=== PATIENT | female | born 1950 | race Caucasian/White ===

== ENCOUNTER 2018-12-10 11:11 | Emergency (ER) | payer MEDICARE, OTHER ==
--- NOTE | 2018-12-10 11:19 | ER Report ---
History and Physical Time Seen By MD: 11:16 Hx. of Stated Complaint: patient fell in the parking lot of the [facility]. substantial hematoma above the right eye. No LOC No C-spine tenderness. Abrasions to the left knee HPI/ROS CHIEF COMPLAINT: Fall with swelling above right eye, lip laceration HISTORY OF PRESENT ILLNESS: 68-year-old female patient presents to emergency room with complaint of a fall. Patient states she was loading up car at the [facility]. She had asked her daughter take the lawn chairs out of the back circular. She states she was not paying attention tripped over the long tears. She states she fell down and hit her head very hard. She denies any loss of consciousness. She denies having any neck pain. Patient states she's had no nausea, vomiting. Patient has not taken any medication for this. She did have significant amounts of swelling to the forehead as well as a cut to her lip. REVIEW OF SYSTEMS: Respiratory: No cough, no dyspnea. Cardiovascular: No chest pain, no palpitations. Gastrointestinal: No vomiting, no abdominal pain. Musculoskeletal: No back pain. Allergies: Coded Allergies: Sulfa (Sulfonamide Antibiotics) (Verified Allergy, Intermediate, 12/10/18) codeine (Verified Allergy, Mild, 12/10/18) Home Meds Active Scripts Hydrocodone Bit/Acetaminophen (HYDROCODON-ACETAMINOPHEN 5-325) 1 Each Tablet, 1 EACH PO Q4-6H PRN for PAIN, #12 TAB Prov:ANGELA ARMSTRONG [employer] SUPERVISOR 12/10/18 Reported Medications Carvedilol (CARVEDILOL) 6.25 Mg Tab, 6.25 MG PO BID, TAB 12/10/18 Gabapentin (GABAPENTIN) 300 Mg Capsule, 600 MG PO TID, CAPSULE 12/10/18 Losartan/Hydrochlorothiazide (HYZAAR 100-25 TABLET) 1 Each Tablet, 1 EACH PO QDAY 12/10/18 Metformin Hcl (METFORMIN HCL) 500 Mg Tablet, 1 TAB PO BID, TAB 12/10/18 Past Medical/Surgical History Patient has a past medical history of hypertension, hyperlipidemia, asthma, prediabetes, cancer. Patient denies any surgical history. Reviewed Nurses Notes: Yes Constitutional Vital Sign - Last 24 Hours 12/10/18 12/10/18 12/10/18 12/10/18 11:11 11:12 11:14 11:30 Temp 98.1 Pulse 82 86 Resp 16 B/P (MAP) 151/87 (108) 151/87 157/90 (112) Pulse Ox 92 O2 Delivery Room Air 12/10/18 12/10/18 12/10/18 12/10/18 11:41 12:11 12:30 12:41 Pulse 79 75 74 B/P (MAP) 171/71 (104) Pulse Ox 91 93 12/10/18 12/10/18 12/10/18 12/10/18 13:00 13:00 13:20 13:30 Pulse 73 72 B/P (MAP) 166/93 (117) 166/93 (117) 174/82 (112) Pulse Ox 92 92 12/10/18 13:40 Pulse 74 Pulse Ox 93 Physical Exam General Appearance: The patient is alert, has no immediate need for airway protection and no current signs of toxicity. Respiratory: Chest is non tender, lungs are clear to auscultation. Cardiac: regular rate and rhythm Gastrointestinal: Abdomen is soft and non tender, no masses, bowel sounds normal. Musculoskeletal: Neck: Neck is supple and non tender. Extremities have full range of motion and are non tender. Tenderness to the right wrist, left knee. Skin: No rashes or lesions. Patient has swelling over the right eye, abrasion to the forehead, cut to the lip. Abrasion to left knee. Neuro: Patient is alert and oriented 4. DIFFERENTIAL DIAGNOSIS: After history and physical exam differential diagnosis was considered for head injury including but not limited to concussion, skull fracture, intraparenchymal contusion, subarachnoid, subdural and epidural hematoma. Medical Decision Making Data Points Result Diagram: 12/10/18 1134 Laboratory Hematology Test 12/10/18 11:34 White Blood Count 4.9 k/uL (4.5-11.0) Red Blood Count 3.90 M/uL (4.17-5.56) L Hemoglobin 12.3 g/dL (12.0-16.0) Hematocrit 35.7 % (34.0-47.0) Mean Corpuscular Volume 91.3 fL (80.0-96.0) Mean Corpuscular Hemoglobin 31.5 pg (26.0-33.0) Mean Corpuscular Hemoglobin Concent 34.5 g/dL (32.0-36.0) Red Cell Distribution Width 13.5 % (11.5-14.5) Platelet Count 238 K/uL (150-450) Mean Platelet Volume 7.8 fL (7.2-11.1) Neutrophils (%) (Auto) 75.7 % (39.4-72.5) H Lymphocytes (%) (Auto) 11.0 % (17.6-49.6) L Monocytes (%) (Auto) 9.7 % (4.1-12.4) Eosinophils (%) (Auto) 2.7 % (0.4-6.7) Basophils (%) (Auto) 0.9 % (0.3-1.4) Nucleated RBC Relative Count (auto) 0.0 /100WBC Neutrophils # (Auto) 3.7 K/uL (2.0-7.4) Lymphocytes # (Auto) 0.5 K/uL (1.3-3.6) L Monocytes # (Auto) 0.5 K/uL (0.3-1.0) Eosinophils # (Auto) 0.1 K/uL (0.0-0.5) Basophils # (Auto) 0.0 K/uL (0.0-0.1) Nucleated RBC Absolute Count (auto) 0.00 K/uL Coagulation Test 12/10/18 11:34 Prothrombin Time 12.6 seconds (12.0-14.4) Prothromb Time International Ratio 0.95 Activated Partial Thromboplast Time 29 seconds (23-35) EKG/Imaging Imaging Indication: CT Head without contrast and CT Cervical spine: Indication: Fall and hit head and face on concrete. Right forehead swelling. Comparison: None available Technique: CT head: Axial CT images were obtained through the brain from the skull base to the vertex without administration of IV contrast. Reformatted coronal and sagittal images were also obtained. Technique: CT cervical spine: Axial CT imaging of the cervical spine was performed. 2-D sagittal and coronal CT reformats were also obtained. One of the following dose optimization techniques was utilized in the performance of this exam: Automated exposure control; adjustment of the mA and/or kV according to the patient's size; or use of an iterative reconstruc tion technique. Specific details can be referenced in the facility's radiology CT exam operational policy. FINDINGS: CT head: No intracranial bleed, midline shift, mass effect, extra-axial fluid collection or hydrocephalus. No abnormal density. Mckeon/white matter differentiation appears normal. Bony structures show no fractures or lesions. The sinuses and mastoids visualized are clear. There is a large subcutaneous hematoma about the right forehead. CT cervical spine: The vertebral bodies are aligned. No fracture or facet dislocation. No bony lesions. There is mild diffuse degenerative changes more so in the lower cervical spine. These include disc space narrowing, osteophytes, endplate changes and facet arthropathy. No bony canal stenosis. Multilevel neural foramina narrowing. Endplates are maintained. No obvious disc herniation. Prevertebral soft tissues and surrounding soft tissues are unremarkable. Lung apices are clear. IMPRESSION: 1. No acute intracranial abnormality. No skull fracture. Large subcutaneous hematoma about the right forehead. 2. No acute osseous or acute alignment abnormality of the cervical spine. Degenerative changes. EXAMINATION: CT facial bones without IV contrast HISTORY: Fall and hit head and face on concrete. Right forehead swelling. COMPARISON: None. TECHNIQUE: Axial images were obtained from the superior aspect of the orbits through the inferior aspect of mandible. Coronal and sagittal reformatted images were obtained from the axial source data. No IV contrast was administered. One of the following dose optimization techniques was utilized in the performance of this exam: Automated exposure control; adjustment of the mA and /or kV according to the patient's size; or use of an iterative reconstruction technique. Specific details can be referenced in the facility's radiology CT exam operational policy. FINDINGS: No fractures. Orbits are intact. Soft tissues orbits are symmetric without focal abnormality. There is minimal mucosal thickening seen in the inferior aspect both maxillary sinuses. The estimated complexes appear patent. The remaining sinuses and mastoids visualized are clear. The temporomandibular joints are intact and symmetric. No bony lesions. There is a large subcutaneous hematoma about the right forehead. Soft tissues are otherwise unremarkable. IMPRESSION: 1. No evidence of acute facial bone fracture. 2. Large subcutaneous hematoma about the right forehead. 3. Minimal bilateral maxillary sinus disease. Report Dictated By: Jame Mendez at 12/10/2018 1:02 PM Report E-Signed By: Jame Mendez at 12/10/2018 1:17 PM KNEE 4 VIEW LEFT Indication: Fall. Knee pain. Comparison: None available Findings: 4 views left knee were obtained. No acute fracture or dislocation is identified. There is a small joint effusion. There is 3 compartment osteoarthritis identified. Joint space narrowing is most pronounced within the lateral compartment. No focal swelling or radiopaque foreign body is seen. IMPRESSION: 1. No acute fracture or dislocation at the left knee. 2. 3 compartment osteoarthritis most pronounced within the lateral compartment. 3. Small joint effusion. Report Dictated By: Enrico Gallegos at 12/10/2018 12:41 PM Report E-Signed By: Enrico Gallegos at 12/10/2018 12:43 PM XR WRIST 3 OR MORE VIEWS RT Indication: Fall. Wrist pain. Comparison: None Available Findings: 3 views of the right wrist are obtained. No acute fracture or dislocation is seen. There are changes of osteoarthritis identified at the triscaphe joint and at the first carpometacarpal joint. Remaining joint spaces are intact. There is ulnar positive variance. On the oblique view, subtle lucency seen within the ulnar margin of the lunate. This may reflect underlying ulnar-lunate impaction. Correlate clinically. No focal soft tissue abnormality is seen. IMPRESSION: 1. No acute fracture or dislocation at the right wrist. 2. Triscaphe joint and first carpal metacarpal joint osteoarthritis. 3. Ulnar positive variance. Correlate for symptoms of ulnar-lunate impaction. Report Dictated By: Enrico Gallegos at 12/10/2018 12:43 PM Report E-Signed By: Enrico Gallegos at 12/10/2018 12:46 PM ED Course/Re-evaluation ED Course Patient is admitted in exam room, history and physical were obtained. Differential diagnoses were considered. On examination patient has a large hematoma over the right high, abrasion to the forehead as well. She had some tenderness to the right wrist. Patient had a CBC, PT and PTT done. Lab results were unremarkable. X-ray of the right wrist showed ulnar variance as well as possible lunate fracture. Cervical spine and facial bones were negative, there is no intracranial hemorrhage. I discussed findings with patient and her daughter. We'll go ahead and discharge her home. Patient is clinging significant amounts of pain to the head. We will go ahead and give her some hydrocodone help the pain. We'll have her ice her wrist and her hematoma. She is to follow-up with her primary care provider next week. Return to emergency room with shortness. Patient verbalized understanding and agreement with plan. Decision to Disposition Date: Dec 10, 2018 Decision to Disposition Time: 13:31 Depart Departure Latest Vital Signs Vital Signs Date Time Temp Pulse Resp B/P (MAP) Pulse Ox O2 Delivery O2 Flow Rate FiO2 12/10/18 13:40 74 93 12/10/18 13:30 174/82 (112) 12/10/18 11:14 98.1 16 Room Air Impression: Primary Impression: Scalp hematoma Additional Impressions: Scalp abrasion Lunate fracture, closed Condition: Improved Disposition: HOME OR SELF-CARE New Scripts Hydrocodone Bit/Acetaminophen (HYDROCODON-ACETAMINOPHEN 5-325) 1 Each Tablet 1 EACH PO Q4-6H PRN for PAIN, #12 TAB Prov: ANGELA ARMSTRONG 12/10/18 Patient Instructions: Hematoma (ED) Additional Instructions: Ice wrist and forehead twice a day for 10-15 minutes. Get plenty of rest. Wear the splint all of the time except when you are in the shower. Apply triple antibiotic ointment to the forehead abrasion. Follow up with your primary care provider in the next week. Return to the ER if condition worsens. You may take Ibuprofen in addition to the pain medication as needed for pain. Problem Qualifiers Primary Impression: Scalp hematoma Encounter type: initial encounter Qualified Codes: S00.03XA - Contusion of scalp, initial encounter Additional Impressions: Scalp abrasion Encounter type: initial encounter Qualified Codes: S00.01XA - Abrasion of scalp, initial encounter Lunate fracture, closed Encounter type: initial encounter Fracture alignment: nondisplaced Laterality: right Qualified Codes: S62.124A - Nondisplaced fracture of lunate [semilunar], right wrist, initial encounter for closed fracture ANGELA ARMSTRONG Dec 10, 2018 11:19
[2018-12-10] MEDS ORDERED: METF-450 PO (11:29)
[2018-12-10] MEDS ORDERED: LOSA-44 PO (11:29)
[2018-12-10] MEDS ORDERED: GABA-549 PO (11:29)
[2018-12-10] MEDS ORDERED: CAR6.25 PO (11:29)
[2018-12-10] MEDS ORDERED: DIPHTH/TETANUS/ACEL. PERTUSSIS IM ONLY ONE (11:30)
[2018-12-10 11:49] LABS: PLATELET COUNT, AUTOMATED 238 K/uL (150-450)
--- NOTE | 2018-12-10 12:51 | RADIOLOGY IMAGING REPORT ---
FACILITY: [facility] - [place] PATIENT NAME: Arlette Trammell : 1950 MR: [id number] V: [id number] EXAM DATE: ORDERING PHYSICIAN: ANGELA ARMSTRONG TECHNOLOGIST: Location: [facility] Patient: Arlette Trammell : 1950 Visit/Account:[id number] Date of Sevice: 12/10/2018 KNEE 4 VIEW LEFT Indication: Fall. Knee pain. Comparison: None available Findings: 4 views left knee were obtained. No acute fracture or dislocation is identified. There is a small joint effusion. There is 3 compartment osteoarthritis identified. Joint space narrowing is most pronounced within the lateral compartment. No focal swelling or radiopaque foreign body is seen. IMPRESSION: 1. No acute fracture or dislocation at the left knee. 2. 3 compartment osteoarthritis most pronounced within the lateral compartment. 3. Small joint effusion. Report Dictated By: Enrico Gallegos at 12/10/2018 12:41 PM Report E-Signed By: Enrico Gallegos at 12/10/2018 12:43 PM WSN:[id number]
--- NOTE | 2018-12-10 12:53 | RADIOLOGY IMAGING REPORT ---
FACILITY: [facility] - [place] PATIENT NAME: Arlette Trammell : 1950 MR: [id number] V: [id number] EXAM DATE: ORDERING PHYSICIAN: ANGELA ARMSTRONG TECHNOLOGIST: Location: [facility] [place] Patient: Arlette Trammell : 1950 Visit/Account:[id number] Date of Sevice: 12/10/2018 XR WRIST 3 OR MORE VIEWS RT Indication: Fall. Wrist pain. Comparison: None Available Findings: 3 views of the right wrist are obtained. No acute fracture or dislocation is seen. There are changes of osteoarthritis identified at the trisc aphe joint and at the first carpometacarpal joint. Remaining joint spaces are intact. There is ulnar positive variance. On the oblique view, subtle lucency seen within the ulnar margin of the lunate. Th is may reflect underlying ulnar-lunate impaction. Correlate clinically. No focal soft tissue abnormal ity is seen. IMPRESSION: 1. No acute fracture or dislocation at the right wrist. 2. Triscaphe joint and first carpal metacarpal joint osteoarthritis. 3. Ulnar positive variance. Correlate for symptoms of ulnar-lunate impaction. Report Dictated By: Enrico Gallegos at 12/10/2018 12:43 PM Report E-Signed By: Enrico Gallegos at 12/10/2018 12:46 PM WSN:[id number]
[2018-12-10 12:57] LABS: INR 0.95
--- NOTE | 2018-12-10 13:24 | RADIOLOGY IMAGING REPORT ---
FACILITY: [facility] [place] PATIENT NAME: Arlette Trammell : 1950 MR: [id number] V: [id number] EXAM DATE: ORDERING PHYSICIAN: ANGELA ARMSTRONG TECHNOLOGIST: Location: [facility] Patient: Arlette Trammell : 1950 Visit/Account:[id number] Date of Sevice: 12/10/2018 Indication: CT Head without contrast and CT Cervical spine: Indication: Fall and hit head and face on concrete. Right forehead swelling. Comparison: None available Technique: CT head: Axial CT images were obtained through the brain from the skull base to the verte x without administration of IV contrast. Reformatted coronal and sagittal images were also obtained. Technique: CT cervical spine: Axial CT imaging of the cervical spine was performed. 2-D sagittal and coronal CT reformats were also obtained. One of the following dose optimization techniques was utilized in the performance of this exam: Autom ated exposure control; adjustment of the mA and/or kV according to the patient's size; or use of an i terative reconstruction technique. Specific details can be referenced in the facility's radiology C T exam operational policy. FINDINGS: CT head: No intracranial bleed, midline shift, mass effect, extra-axial fluid collection or hydrocephalus. No abnormal density. Mckeon/white matter differentiation appears normal. Bony structures show no fractures or lesions. The sinuses and mastoids visualized are clear. There is a large subcutaneous hematoma ab out the right forehead. CT cervical spine: The vertebral bodies are aligned. No fracture or facet dislocation. No bony lesions. There is mild di ffuse degenerative changes more so in the lower cervical spine. These include disc space narrowing, o steophytes, endplate changes and facet arthropathy. No bony canal stenosis. Multilevel neural foramin a narrowing. Endplates are maintained. No obvious disc herniation. Prevertebral soft tissues and surr ounding soft tissues are unremarkable. Lung apices are clear. IMPRESSION: 1. No acute intracranial abnormality. No skull fracture. Large subcutaneous hematoma about the right forehead. 2. No acute osseous or acute alignment abnormality of the cervical spine. Degenerative changes. EXAMINATION: CT facial bones without IV contrast HISTORY: Fall and hit head and face on concrete. Right forehead swelling. COMPARISON: None. TECHNIQUE: Axial images were obtained from the superior aspect of the orbits through the inferior as pect of mandible. Coronal and sagittal reformatted images were obtained from the axial source data. N o IV contrast was administered. One of the following dose optimization techniques was utilized in the performance of this exam: Autom ated exposure control; adjustment of the mA and/or kV according to the patient's size; or use of an i terative reconstruction technique. Specific details can be referenced in the facility's radiology C T exam operational policy. FINDINGS: No fractures. Orbits are intact. Soft tissues orbits are symmetric without focal abnormality. There i s minimal mucosal thickening seen in the inferior aspect both maxillary sinuses. The estimated comple xes appear patent. The remaining sinuses and mastoids visualized are clear. The temporomandibular jose nts are intact and symmetric. No bony lesions. There is a large subcutaneous hematoma about the right forehead. Soft tissues are otherwise unremarkable. IMPRESSION: 1. No evidence of acute facial bone fracture. 2. Large subcutaneous hematoma about the right forehead. 3. Minimal bilateral maxillary sinus disease. Report Dictated By: Jame Mendez at 12/10/2018 1:02 PM Report E-Signed By: Jame Mendez at 12/10/2018 1:17 PM WSN:[id number]
--- NOTE | 2018-12-10 13:24 | RADIOLOGY IMAGING REPORT ---
FACILITY: [facility] PATIENT NAME: Arlette Trammell : 1950 MR: [id number] V: [id number] EXAM DATE: ORDERING PHYSICIAN: ANGELA ARMSTRONG TECHNOLOGIST: Location: [facility] [place] Patient: Arlette Trammell : 1950 Visit/Account:[id number] Date of Sevice: 12/10/2018 Indication: CT Head without contrast and CT Cervical spine: Indication: Fall and hit head and face on concrete. Right forehead swelling. Comparison: None available Technique: CT head: Axial CT images were obtained through the brain from the skull base to the verte x without administration of IV contrast. Reformatted coronal and sagittal images were also obtained. Technique: CT cervical spine: Axial CT imaging of the cervical spine was performed. 2-D sagittal and coronal CT reformats were also obtained. One of the following dose optimization techniques was utilized in the performance of this exam: Autom ated exposure control; adjustment of the mA and/or kV according to the patient's size; or use of an i terative reconstruction technique. Specific details can be referenced in the facility's radiology C T exam operational policy. FINDINGS: CT head: No intracranial bleed, midline shift, mass effect, extra-axial fluid collection or hydrocephalus. No abnormal density. Mckeon/white matter differentiation appears normal. Bony structures show no fractures or lesions. The sinuses and mastoids visualized are clear. There is a large subcutaneous hematoma ab out the right forehead. CT cervical spine: The vertebral bodies are aligned. No fracture or facet dislocation. No bony lesions. There is mild di ffuse degenerative changes more so in the lower cervical spine. These include disc space narrowing, o steophytes, endplate changes and facet arthropathy. No bony canal stenosis. Multilevel neural foramin a narrowing. Endplates are maintained. No obvious disc herniation. Prevertebral soft tissues and surr ounding soft tissues are unremarkable. Lung apices are clear. IMPRESSION: 1. No acute intracranial abnormality. No skull fracture. Large subcutaneous hematoma about the right forehead. 2. No acute osseous or acute alignment abnormality of the cervical spine. Degenerative changes. EXAMINATION: CT facial bones without IV contrast HISTORY: Fall and hit head and face on concrete. Right forehead swelling. COMPARISON: None. TECHNIQUE: Axial images were obtained from the superior aspect of the orbits through the inferior as pect of mandible. Coronal and sagittal reformatted images were obtained from the axial source data. N o IV contrast was administered. One of the following dose optimization techniques was utilized in the performance of this exam: Autom ated exposure control; adjustment of the mA and/or kV according to the patient's size; or use of an i terative reconstruction technique. Specific details can be referenced in the facility's radiology C T exam operational policy. FINDINGS: No fractures. Orbits are intact. Soft tissues orbits are symmetric without focal abnormality. There i s minimal mucosal thickening seen in the inferior aspect both maxillary sinuses. The estimated comple xes appear patent. The remaining sinuses and mastoids visualized are clear. The temporomandibular jose nts are intact and symmetric. No bony lesions. There is a large subcutaneous hematoma about the right forehead. Soft tissues are otherwise unremarkable. IMPRESSION: 1. No evidence of acute facial bone fracture. 2. Large subcutaneous hematoma about the right forehead. 3. Minimal bilateral maxillary sinus disease. Report Dictated By: Jame Mendez at 12/10/2018 1:02 PM Report E-Signed By: Jame Mendez at 12/10/2018 1:17 PM WSN:[id number]
--- NOTE | 2018-12-10 13:24 | RADIOLOGY IMAGING REPORT ---
FACILITY: [facility] PATIENT NAME: Arlette Trammell : 1950 MR: [id number] V: [id number] EXAM DATE: ORDERING PHYSICIAN: ANGELA ARMSTRONG TECHNOLOGIST: Location: [facility] - [place] Patient: Arlette Trammell : 1950 Visit/Account:[id number] Date of Sevice: 12/10/2018 Indication: CT Head without contrast and CT Cervical spine: Indication: Fall and hit head and face on concrete. Right forehead swelling. Comparison: None available Technique: CT head: Axial CT images were obtained through the brain from the skull base to the verte x without administration of IV contrast. Reformatted coronal and sagittal images were also obtained. Technique: CT cervical spine: Axial CT imaging of the cervical spine was performed. 2-D sagittal and coronal CT reformats were also obtained. One of the following dose optimization techniques was utilized in the performance of this exam: Autom ated exposure control; adjustment of the mA and/or kV according to the patient's size; or use of an i terative reconstruction technique. Specific details can be referenced in the facility's radiology C T exam operational policy. FINDINGS: CT head: No intracranial bleed, midline shift, mass effect, extra-axial fluid collection or hydrocephalus. No abnormal density. Mckeon/white matter differentiation appears normal. Bony structures show no fractures or lesions. The sinuses and mastoids visualized are clear. There is a large subcutaneous hematoma ab out the right forehead. CT cervical spine: The vertebral bodies are aligned. No fracture or facet dislocation. No bony lesions. There is mild di ffuse degenerative changes more so in the lower cervical spine. These include disc space narrowing, o steophytes, endplate changes and facet arthropathy. No bony canal stenosis. Multilevel neural foramin a narrowing. Endplates are maintained. No obvious disc herniation. Prevertebral soft tissues and surr ounding soft tissues are unremarkable. Lung apices are clear. IMPRESSION: 1. No acute intracranial abnormality. No skull fracture. Large subcutaneous hematoma about the right forehead. 2. No acute osseous or acute alignment abnormality of the cervical spine. Degenerative changes. EXAMINATION: CT facial bones without IV contrast HISTORY: Fall and hit head and face on concrete. Right forehead swelling. COMPARISON: None. TECHNIQUE: Axial images were obtained from the superior aspect of the orbits through the inferior as pect of mandible. Coronal and sagittal reformatted images were obtained from the axial source data. N o IV contrast was administered. One of the following dose optimization techniques was utilized in the performance of this exam: Autom ated exposure control; adjustment of the mA and/or kV according to the patient's size; or use of an i terative reconstruction technique. Specific details can be referenced in the facility's radiology C T exam operational policy. FINDINGS: No fractures. Orbits are intact. Soft tissues orbits are symmetric without focal abnormality. There i s minimal mucosal thickening seen in the inferior aspect both maxillary sinuses. The estimated comple xes appear patent. The remaining sinuses and mastoids visualized are clear. The temporomandibular jose nts are intact and symmetric. No bony lesions. There is a large subcutaneous hematoma about the right forehead. Soft tissues are otherwise unremarkable. IMPRESSION: 1. No evidence of acute facial bone fracture. 2. Large subcutaneous hematoma about the right forehead. 3. Minimal bilateral maxillary sinus disease. Report Dictated By: Jame Mendez at 12/10/2018 1:02 PM Report E-Signed By: Jame Mendez at 12/10/2018 1:17 PM WSN:[id number]
[2018-12-10 13:30] VITALS: BP 174/82
[2018-12-10] MEDS ORDERED: HYDR-385 PO (13:39)
[2018-12-10] MEDS ORDERED: APAP/HYDROCODONE 325/5 TAB PO ONE (13:45)
== END 2018-12-10 14:04 | disposition home or self-care (01) ==
LOC: ER 11:14
DX: S00.03XA Contusion of scalp, initial encounter (principal); S00.01XA Abrasion of scalp, initial encounter; S62.124A Nondisplaced fracture of lunate [semilunar], right wrist, initial encounter for closed fracture; W01.10XA Fall on same level from slipping, tripping and stumbling with subsequent striking against unspecified object, initial encounter
CPT/HCPCS: 36415; 70450; 70486; 72125; 73110; 73564; 85025; 85610; 85730; 90471; 90715; 99284; A9270; L3763